=== PATIENT | male | born 1980 | race Two or more races ===

== ENCOUNTER 2024-08-15 13:53 | Emergency (ER) | payer MEDICAID, SELFPAY ==
[2024-08-15 14:14] VITALS: BP 158/95; PULSE 119; RESP 18; TEMP 38.1; O2SAT 96; BMI 39.4
--- NOTE | 2024-08-15 14:36 | XR_ITS ---
Examination: PA lateral chest 2 views TECHNIQUE: Upright PA lateral chest 2 views Exam date and time: August 15, 2024 1446 hours INDICATIONS: Coughing fever today. FINDINGS: Normal heart size. Lungs are clear. Osseous structures are intact IMPRESSION: No active disease
--- NOTE | 2024-08-15 14:40 | EDNOTE_ITS ---
ED General RME/HPI General Chief complaint: General Adult/Misc Complain Stated complaint: BLOOD IN URINE/BLADDER PAIN STARTING THIS AM Time Seen by Provider: 08/15/24 14:40 Source: patient Arrival date/time: 08/15/24 13:53 43-year-old male with no known medical history presents to the emergency room with a chief complaint of congestion, fever, blood in the urine x 1 day Mode of arrival: ambulatory Limitations: no limitations Related Data Allergies Allergy/AdvReac Type Severity Reaction Status Date / Time No Known Allergies Allergy Verified 08/15/24 14:00 Review of Systems Review of Systems Systems Reviewed: All systems reviewed, normal except as documented Constitutional Constitutional: Reports system reviewed and no additional complaints, except as documented, Denies fatigue, Denies fever(s), Reports headache(s) and Reports weakness Eyes Eyes: Reports system reviewed and no additional complaints, except as documented, Denies blurry vision and Denies change in vision ENT Ears, Nose, Mouth, and Throat: Reports system reviewed and no additional complaints, except as documented, Denies otalgia, Reports headache(s), Denies nasal congestion, Denies throat swelling and Denies vertigo Cardiovascular Cardiovascular: Reports system reviewed and no additional complaints, except as documented, Denies chest pain, Denies dyspnea and Denies dyspnea on exertion Respiratory Respiratory: Reports system reviewed and no additional complaints, except as documented, Denies chest congestion, Reports cough, Denies dyspnea, Denies dyspnea on exertion and Denies wheezing Gastrointestinal Gastrointestinal: Reports system reviewed and no additional complaints, except as documented, Denies abdominal pain, Denies cramping, Denies nausea and Denies vomiting Genitourinary Genitourinary: Reports system reviewed and no additional complaints, except as documented, Denies dysuria and Denies hematuria Musculoskeletal Musculoskeletal: Reports system reviewed and no additional complaints, except as documented and Denies back pain Integumentary/Breasts Skin/Breast: Reports system reviewed and no additional complaints, except as documented and Denies wounds Neurologic Neurologic: Reports system reviewed and no additional complaints, except as documented, Denies confusion, Reports headache(s), Denies lack of coordination, Denies vertigo and Reports weakness Psychiatric Psychiatric: Reports system reviewed and no additional complaints, except as documented, Denies anxiety, Denies confusion, Denies depression, Denies paranoia, Denies suicidal ideation and Denies tactile hallucinations Endocrine Endocrine: Reports system reviewed and no additional complaints, except as documented and Denies fatigue Hematologic/Lymphatic Hematologic/Lymphatic: Reports system reviewed and no additional complaints, except as documented and Denies lymphadenopathy Allergic/Immunologic Allergic/Immunologic: Reports system reviewed and no additional complaints, except as documented, Denies throat swelling, Denies urticaria and Denies wheezing Past Medical History Social History SMOKING STATUS: Never smoker ED Exam General Limitations: Present no limitations General appearance: Present alert and in no apparent distress Head Head exam: Present atraumatic Eye Eye exam: Present normal appearance, PERRL and EOMI ENT ENT exam: Present normal exam, normal oropharynx and mucous membranes moist Neck Neck exam: Present normal inspection, full ROM and trachea midline Chest Chest inspection: Present normal inspection and symmetric chest wall rise Respiratory Respiratory exam: Present normal lung sounds bilaterally; Absent respiratory distress, wheezes, stridor, accessory muscle use or prolonged expiratory phase Cardiovascular Cardiovascular exam: Present regular rate, normal rhythm and normal heart sounds Abdominal Exam Abdominal exam: Present soft and normal bowel sounds Extremities Exam Extremities exam: Present normal inspection and full ROM Back Exam Back exam: Present normal inspection and full ROM Neurological Exam Neurological exam: Present alert, oriented X3 and CN II-XII intact Psychiatric Psychiatric exam: Present normal affect and normal mood Skin Skin exam: Present warm, dry, intact and normal color Course Quality Measures none Orders Category Date Time Status Bedside COVID-19 Antigen Test NOW Care 08/15/24 14:36 Active Bedside Influenza A&B Antigen Test NOW Care 08/15/24 14:36 Completed XR chest 2V Stat Exams 08/15/24 14:36 Completed CBC Stat Lab 08/15/24 14:44 Completed CMP [Comprehensive Metabolic Panel] Stat Lab 08/15/24 14:44 Completed UA, C/S IF [Urinalysis, C/S if Indicated] Stat Lab 08/15/24 14:42 Received Acetaminophen Tab [Tylenol ES Tab] Med 08/15/24 14:37 Discontinued 1,000 mg PO X1 ONE Vital Signs Vital signs: Vital Signs Temperature 100.6 F H 08/15/24 14:14 Pulse Rate 119 H 08/15/24 14:14 Respiratory Rate 18 08/15/24 14:14 Blood Pressure 158/95 H 08/15/24 14:14 Pulse Oximetry (%) 96 08/15/24 14:14 Oxygen Delivery Method Room Air 08/15/24 14:14 O2 saturation 96% within normal limits MDM Patient data External records reviewed:: [facility] previous records Clinical information provided by:: patient Social determinants that could affect healthcare access:: none Patient has the following chronic illnesses:: No chronic illness How is presenting disease/condition affected by chronic disease/condition?: no chronic disease Evaluation data The following diagnostics were reviewed and interpreted by me:: lab results and radiology exam(s) Lab and/or radiology exams considered but not ordered:: Labs and radiology exams considered and ordered Interpretation Summary: N/A Medications Medications considered but not ordered:: Medication given Medication administrations:: Medication Administration History Discontinued Medications Acetaminophen (Acetaminophen 500 Mg Tablet) 1,000 mg PO X1 ONE Stop: 08/15/24 14:38 Last Admin: 08/15/24 14:56 Dose: 1,000 mg Documented By: Medication given Consultations Consultation(s) initiated? (list below): No Diagnosis Differential Diagnosis ED Complaint MDM: Influenza/upper respiratory infection/community-acquired pneumonia/COVID-19 Most likely diagnosis given after review of the tests above:: Influenza A Admission Indicated Admission indicated?: not indicated Explain why admission is indicated or not indicated:: N/A Admission Request Was there a request for admission?: No Disposition Plan Disposition Plan: Discharge Discharge Attestation Discharge Attestation: The patient and all family members were given an opportunity to ask questions and understood the discharge instructions. Discharge instructions specifically effects, indications for sooner follow up or return to the emergency department, and the expected course of current diagnosis. Patient condition: Stable Medical Decision Making [facility] Narrative MDM Narrative: 43-year-old male with no known medical history presents to the emergency room with a chief complaint of congestion, fever, blood in the urine x 1 day Clinically the patient is tachycardic and has a low-grade fever. Antipyretics were given with significant improvement to the patient's symptoms Patient has clear bilateral lung sounds there is no wheezing there is no abnormal breath sounds and there is no accessory muscle use Patient tested positive for influenza A Patient was discharged and educated to follow-up with primary care provider in the next 24 to 48 hours and return to the emergency room for any evidence of worsening signs or symptoms Differential Diagnosis Differential Diagnosis: Influenza/upper respiratory infection/community-acquired pneumonia/COVID-19 Lab Data 08/15/24 14:44 08/15/24 14:44 Labs: Lab Results 04/01/25 Range/Units 14:44 WBC 15.9 H (3.8-10.6) Thou/mm3 RBC 4.64 (4.50-5.90) Miln/mm3 Hgb 13.8 (13.5-16.0) g/dL Hct 38.9 L (41.0-53.0) % MCV 84 (80-100) fL MCH 29.7 (25.0-35.0) pg MCHC 35.5 (31.0-37.0) g/dl RDW Std Deviation 37.9 (35.1-43.9) fL Plt Count 367 (140-440) Thou/mm3 Neut % (Auto) 80 (37-80) % Lymph % (Auto) 10 (10-50) % [place] % (Auto) 9 (0-12) % Eos % (Auto) 0 (0-10) % Baso % (Auto) 0 (0-2.5) % Neut # (Auto) 12.8 H (1.8-7.7) Thou/mm3 Lymph # (Auto) 1.5 (1.0-4.8) Thou/mm3 [place] # (Auto) 1.4 H (0.0-0.8) Thou/mm3 Eos # (Auto) 0.0 (0.0-0.5) Thou/mm3 Baso # (Auto) 0.1 (0.0-0.2) Thou/mm3 Immature Gran # (Auto) 0.09 H (0.00-0.00) Thou/mm3 Absolute Nucleated RBC 0.00 (0.00-0.00) Thou/mm3 Immature Gran % 1 H (0-0) % Nucleated RBC % 0 (0) /100 WBC Sodium 135 L (136-145) mMol/L Potassium 4.0 (3.4-5.1) mMol/L Chloride 100 (98-107) mMol/L Carbon Dioxide 28.3 (20.0-31.0) mMol/L Anion Gap 7 (7-16) BUN 13 (9-23) mg/dL Creatinine 0.9 (0.6-1.3) mg/dL Estim Creat Clear Calc 137.4 (>60) mL/min eGFR > 60 (60 - ) See Note BUN/Creatinine Ratio 14 (12-20) Ratio Glucose 163 H (74-106) mg/dL Calculated Osmolality 274 L (275-295) Calcium 9.8 (8.3-10.6) mg/dL Corrected Calcium 9.8 (8.5-10.1) mg/dL Total Bilirubin 0.6 (0.3-1.2) mg/dL AST 29 (0-34) U/L ALT 34 (10-49) U/L Alkaline Phosphatase 100 (46-116) U/L Total Protein 8.3 H (5.7-8.2) gm/dL Albumin 4.8 (3.5-5.0) gm/dL Globulin 3.5 (2.3-3.5) gm/dL Albumin/Globulin Ratio 1.4 (1.2-2.2) Discharge Plan Plan Patient Disposition: HOME (Self Care) Disposition Comment: Stable Problem List Clinical Impression: Influenza A Patient/Caregiver Discharge Instructions Education Materials: ED Influenza (Adult) Additional Instructions: Please follow-up with your primary care provider in the next 24 to 48 hours. You tested positive for influenza. The treatment for this is symptom management. Please continue to take Tylenol and ibuprofen for fever management. Please increase your oral fluid intake. For any evidence of worsening signs or symptoms please return to the emergency room immediately Print Language: Lithuanian Stand Alone Forms: [facility]akelin Award Info., Patient Portal Info Letter PA/ARY Supervising Physician KIMI/RAY Supervising Physician: Dr. Varela
[2024-08-15 14:56] VITALS: TEMP 38.1
[2024-08-15] MEDS: ACETAMINOPHEN 500 MG TABLET 1000 MG PO (14:56)
[2024-08-15 14:58] LABS: Collection Type, Urine Clean Catch; Squamous Epithelial Cell,Urine 0 /hpf (0-5)
[2024-08-15 15:04] LABS: Basophils # (Auto) 0.1 Thou/mm3 (0.0-0.2); Basophils % (Auto) 0 % (0-2.5); Eosinophils % (Auto) 0 % (0-10); Hematocrit 38.9 % (41.0-53.0); Hemoglobin 13.8 g/dL (13.5-16.0); Immature Granulocytes % (Auto) 1 % (0-0); Immature Granulocytes Auto 0.09 Thou/mm3 (0.00-0.00); Lymphocytes # (Auto) 1.5 Thou/mm3 (1.0-4.8); Lymphocytes % (Auto) 10 % (10-50); Mean Corpuscular HGB Conc 35.5 g/dl (31.0-37.0); Mean Corpuscular Hemoglobin 29.7 pg (25.0-35.0); Mean Corpuscular Volume 84 fL (80-100); Monocytes # (Auto) 1.4 Thou/mm3 (0.0-0.8); Monocytes % (Auto) 9 % (0-12); Neutrophils # (Auto) 12.8 Thou/mm3 (1.8-7.7); Neutrophils % (Auto) 80 % (37-80); Nucleated Red Blood Cell % 0 /100 WBC (0); Platelet Count 367 Thou/mm3 (140-440); RDW Standard Deviation 37.9 fL (35.1-43.9); Red Blood Count 4.64 Miln/mm3 (4.50-5.90); White Blood Count 15.9 Thou/mm3 (3.8-10.6)
[2024-08-15 15:22] LABS: Bilirubin,Urine Negative (Negative); Blood,Urine 3+ (Negative); Glucose, Urine Negative (Negative); Ketones,Urine Negative (Negative); Leukocyte Esterase,Urine Positive (Negative); Nitrite,Urine Negative (Negative); Protein,Urine 2+ (Neg - Trace); RBC,Urine 6595 /hpf (0-3); Specific Gravity,Urine 1.019 (1.001-1.035); Urobilinogen,Urine Negative mg/dL (0.0-1.0); WBC,Urine 451 /hpf (0-5)
[2024-08-15 15:26] LABS: Alanine Aminotransferase 34 U/L (10-49); Albumin, Serum 4.8 gm/dL (3.5-5.0); Albumin/Globulin Ratio 1.4 (1.2-2.2); Alkaline Phosphatase 100 U/L (46-116); Anion Gap 7 (7-16); Aspartate Amino Transferase 29 U/L (0-34); BUN/Creatinine Ratio 14 Ratio (12-20); Bilirubin,Total 0.6 mg/dL (0.3-1.2); Blood Urea Nitrogen 13 mg/dL (9-23); Calcium 9.8 mg/dL (8.3-10.6); Calcium (Corrected) 9.8 mg/dL (8.5-10.1); Carbon Dioxide 28.3 mMol/L (20.0-31.0); Chloride 100 mMol/L (98-107); Creatinine (Component) 0.9 mg/dL (0.6-1.3); Estimated Creatinine Clearance 137.4 mL/min (>60); Globulin 3.5 gm/dL (2.3-3.5); Glucose 163 mg/dL (74-106); Osmolality,Calculated 274 (275-295); Sodium 135 mMol/L (136-145); Total Protein 8.3 gm/dL (5.7-8.2); eGFR > 60 See Note
[2024-08-15 16:03] LABS: Clarity,Urine Cloudy (Clear/Hazy); Color,Urine Lt-Yellow (Lt Yel-Yel); Culture Indicated,Urine Yes
[2024-08-15] MEDS: AZITHROMYCIN 250 MG TABLET 1000 MG PO (16:37)
[2024-08-15] MEDS: cefTRIAXone 1,000 MG, LIDOCAINE 1% 20 ML 2.1 ML IM (16:39)
[2024-08-15 16:49] VITALS: TEMP 36.9
== END 2024-08-15 16:51 | disposition home or self-care (01) ==
PROVIDERS: Nurse Practitioner Family; Emergency Provider Emergency Medicine
DX: J10.1 Influenza due to other identified influenza virus with other respiratory manifestations (principal); R31.9 Hematuria, unspecified
CPT/HCPCS: 36415; 71046; 80053; 81001; 85025; 87077; 87086; 87186; 87400; 87811; 96372; 99283; J0696; J3490; A9270